=== PATIENT | female | born 1995 | race Two or more races ===

== ENCOUNTER 2021-05-06 01:27 | Inpatient (IN) | payer BC ==
[2021-05-06] MEDS ORDERED: Nalbuphine 10 MG/1 ML Vial IVPUSH PRN (14:02)
[2021-05-06] MEDS ORDERED: Sodium Chloride 0.9% 10 ML Syringe FLUSH PRN (14:02)
[2021-05-06] MEDS ORDERED: Lidocaine 1% 50 ML MDV INJECT ONE (14:02)
[2021-05-06] MEDS ORDERED: Ondansetron 4 MG/2 ML SDV IVPUSH PRN (14:02)
[2021-05-06] MEDS: Lactated Ringers 1,000 ML IV SCH ×3 (14:05→19:04)
[2021-05-06] MEDS ORDERED: Oxytocin/Lactated Ringers 10 UNIT/1,000 ML BAG IV SCH ×2 (14:15)
[2021-05-06] MEDS ORDERED: diphenhydrAMINE 50 MG/ML SDV IVPUSH PRN (15:01)
[2021-05-06] MEDS ORDERED: fentaNYL 100 MCG/2 ML SDV EPIDUR PRN (15:01)
[2021-05-06] MEDS ORDERED: ePHEDrine 50 MG/ML SDV IVPUSH PRN (15:01)
[2021-05-06] MEDS: Bupivacaine/fentaNYL/NS 100 ML Bag EPIDUR PRN ×2 (15:22→22:57)
[2021-05-06] MEDS ORDERED: Sodium Chloride 0.9% 10 ML Syringe FLUSH SCH (21:00)
[2021-05-07] MEDS ORDERED: Bupivacaine 0.25% 10 ML SDV ONE
[2021-05-07] MEDS ORDERED: Witch Hazel Medicated Pads 40/Jar TOP PRN (02:47)
[2021-05-07] MEDS ORDERED: Docusate Sodium 100 MG Cap PO PRN (02:47)
[2021-05-07] MEDS ORDERED: Acetaminophen 325 MG Tab PO PRN (02:47)
[2021-05-07] MEDS ORDERED: Benzocaine/Menthol 20%-0.5% Spray 78 GM Cannister TOP PRN (02:47)
[2021-05-07] MEDS: Ibuprofen 600 MG Tab PO PRN ×4 (03:49→20:48)
[2021-05-07] MEDS: Prenatal Multivitamin with Calcium/Folic Acid/Iron Tab PO SCH (08:08)
[2021-05-08] MEDS: Prenatal Multivitamin with Calcium/Folic Acid/Iron Tab PO SCH (10:09)
[2021-05-08] MEDS: Ibuprofen 600 MG Tab PO PRN (10:12)
== END 2021-05-08 14:10 | disposition home or self-care (01) | DRG 560 ==
LOC: JD.OB 01:27 → UNDOADMOB 13:38 → JD.OB 13:38 → JD.MS 14:58 → JD.OB 15:08 → OBSVTOIN 05-07 01:27 → JD.MS 05-07 01:28 → JD.OB 05-07 12:56
PROVIDERS: ADMIT Obstetrics & Gynecology; ATTEND Obstetrics & Gynecology
PROC: 10E0XZZ Delivery of Products of Conception, External Approach (ICD-10-PCS; principal; 2021-05-07)
PROC: 10907ZC Drainage of Amniotic Fluid, Therapeutic from Products of Conception, Via Natural or Artificial Opening (ICD-10-PCS; 2021-05-07)
PROC: 0KQM0ZZ Repair Perineum Muscle, Open Approach (ICD-10-PCS; 2021-05-07)
PROC: 3E033VJ Introduction of Other Hormone into Peripheral Vein, Percutaneous Approach (ICD-10-PCS; 2021-05-07)
PROC: 3E0R3BZ Introduction of Anesthetic Agent into Spinal Canal, Percutaneous Approach (ICD-10-PCS; 2021-05-07)
PROC: 00HU33Z Insertion of Infusion Device into Spinal Canal, Percutaneous Approach (ICD-10-PCS; 2021-05-07)
DX: O99.62 Diseases of the digestive system complicating childbirth (principal); Z37.0 Single live birth; K21.9 Gastro-esophageal reflux disease without esophagitis; O99.214 Obesity complicating childbirth; Z20.822 Contact with and (suspected) exposure to COVID-19; Z3A.39 39 weeks gestation of pregnancy; O70.1 Second degree perineal laceration during delivery
CPT/HCPCS: 01967; 36415; 51702; 59025; 59409; 85025; 86592; 86850; 86900; 86901; A9270-GY; J2590; J3010; J3490; J7120; U0002